=== PATIENT | female | born 1995 | race African-American/Black ===

== ENCOUNTER → 2019-12-17 | Outpatient (CLI) | payer BC ==
[2019-12-17 12:57] LABS: HEMATOCRIT 33.9 % (36.0-47.0); HEMOGLOBIN 11.1 g/dL (12.0-15.5); RED BLOOD COUNT 4.55 x10^6/uL (3.50-5.40); RED CELL DISTRIBUTION WIDTH 15.9 % (11.5-14.5); WHITE BLOOD COUNT 8.4 x10^3/uL (4.0-11.0)
[2019-12-18 17:09] LABS: RUBELLA IGG ANTIBODY 26.8 index (Immune >0.99)
== END | disposition home or self-care (01) ==
LOC: LAB 12:14
PROVIDERS: ATTEND Obstetrics & Gynecology
DX: O26.851 Spotting complicating pregnancy, first trimester (principal); Z3A.00 Weeks of gestation of pregnancy not specified
CPT/HCPCS: 36415; 85027; 86592; 86703; 86762; 86787; 86803; 86850; 86900; 86901; 87340

== ENCOUNTER → 2019-12-24 | Outpatient (CLI) | payer BC ==
--- NOTE | 2019-12-24 15:20 | RAD ---
Clinical indications: Excessive growth COMPARISON: None available. Findings: A single intrauterine fetus is seen in cephalic position. heart rate is 145 beats per minute. BPD is 6.30 cm which equals 25 weeks 4 days. HC is 23.67 cm which equals 25 weeks 5 days. AC is 21.16 cm which equals 25 weeks 5 days. FL is 4.66 cm which equals 25 weeks 4 days. Average gestational age by ultrasound is 25 weeks 5 days +/- 2 weeks with an EDC of April 02, 2020. EDC by LMP is April 08, 2020. Estimated weight is 1 lbs and 13 oz. A four-chamber heart and three-vessel cord are identified. stomach and urinary bladder are identified. kidneys are unremarkable. Cord insertion site is unremarkable. The intracranial structures and spine are morphologically normal in appearance. The ventricular trigone measurement is less than 10 mm. Cisterna magna measurement is 5.3 mm. Four extremities are identified. A normal amount of amniotic volume is seen. Cervical length is 4.2 cm. A grade grade 0 posterior placenta is seen. No placenta previa and no placenta abruptio is identified. The maternal ovaries are not visualized. Impression: Single IUP with gestational age of 25 weeks 5 days. Electronically signed by: Fabrizio Becker MD (12/24/2019 3:17 PM) [facility]
== END | disposition home or self-care (01) ==
LOC: US 06:40 → EDUNIT# 07:00
PROVIDERS: ATTEND Obstetrics & Gynecology
DX: O36.62X0 Maternal care for excessive fetal growth, second trimester, not applicable or unspecified (principal); Z3A.25 25 weeks gestation of pregnancy
CPT/HCPCS: 76805

== ENCOUNTER 2020-03-21 19:17 | Inpatient (IN) | payer BC ==
[~2020-03-21] VITALS: Ht 154.9 cm; Wt 53.5 kg
[2020-03-21] MEDS ORDERED: IV RINGERS,LACTATED 1000ML 1,000 ML IV SCH (19:23)
[2020-03-21 19:41] LABS: CLARITY,URINE CLEAR; COLOR,URINE YELLOW
[2020-03-21 19:42] LABS: BILIRUBIN,URINE NEGATIVE (NEG); NITRITE,URINE NEGATIVE (NEG); PROTEIN,URINE TRACE mg/dL (NEG-TRACE)
[2020-03-21 19:43] LABS: SQUAMOUS EPITHELIAL CELL,UR FEW /LPF
[2020-03-21 19:44] LABS: BACTERIA,URINE FEW /HPF (0-FEW)
[2020-03-21 20:15] VITALS: BP 115/60
[2020-03-21] MEDS ORDERED: ONDANSETRON PF 4 MG/2 ML VIAL. IVP PRN (21:30)
[2020-03-21] MEDS ORDERED: BUTORPHANOL 2 MG/ML VIAL. IVP PRN (21:30)
[2020-03-21] MEDS ORDERED: TERBUTALINE 1 MG/ML VIAL. SQ PRN (21:30)
[2020-03-21] MEDS ORDERED: OXYTOCIN 30 UNIT/500 ML PREMIX 500 ML IV PRN (21:30)
[2020-03-21] MEDS ORDERED: 0.9 % SODIUM CHLORIDE 10 ML DISP.SYRIN. IV PRN (21:30)
[2020-03-21] MEDS ORDERED: LIDOCAINE 1% PF 30 ML VIAL. INJ PRN (21:30)
[2020-03-21] MEDS ORDERED: IBUPROFEN 400 MG TABLET. PO PRN (21:30)
[2020-03-21] MEDS ORDERED: IV RINGERS,LACTATED 1000ML 1,000 ML IV PRN (21:30)
[2020-03-21 21:57] LABS: BASO # 0.1 x10^3/uL (0.0-0.2); BASO % 1 % (0-3); EOS # 0.1 x10^3/uL (0.0-0.7); EOS % 0 % (0-3); HEMATOCRIT 31.7 % (36.0-47.0); HEMOGLOBIN 10.1 g/dL (12.0-15.5); LYMPH # 1.4 x10^3/uL (1.0-4.8); LYMPH % 11 % (24-48); MEAN CORPUSCULAR HEMOGLOBIN 22 pg (25-35); MEAN CORPUSCULAR HGB CONC 32 g/dL (31-37); MEAN CORPUSCULAR VOLUME 67 fL (79-100); MONO % 8 % (0-9); NEUT # 10.2 x10^3/uL (1.8-7.7); NEUT % 80 % (31-73); PLATELET COUNT 230 x10^3/uL (140-400); RED CELL DISTRIBUTION WIDTH 15.8 % (11.5-14.5); WHITE BLOOD COUNT 12.8 x10^3/uL (4.0-11.0)
[2020-03-21 22:35] LABS: PLT ESTIMATE ADEQUATE (ADEQUATE)
[2020-03-21 22:36] LABS: HYPOCHROMIA MOD; MICROCYTOSIS MARKED; POLYCHROMASIA SLIGHT
--- NOTE | 2020-03-22 01:29 | PDOC1 ---
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 The pt was 4cm on presentation but remained unchanged after an hour. Since the pt wa ctxing q 3 min she was admitted. Around midnight the pt was found to be 6cm dilated. Around 1:00 the pt SROM and wa found to be 9 cm and delivered shortly after. PMH: Denies PSH: Denies OBHx: 2 x TSVD (one child passed a week after ) SH: no tob, no EtOH FH: no contributory Social History: Smoke: No ALCOHOL: none Drugs: None Medications: Meds: Current Medications Medications (Trade) Dose Ordered Sig/Theodore Route PRN Reason Start Time Stop Time Status Last Admin Dose Admin Ringer's Solution 1,000 ml @ 125 mls/hr Q8H IV 03/21/20 19:23 03/21/20 21:48 Butorphanol Tartrate (Stadol) 2 mg PRN Q1HR PRN IVP Severe labor pain 03/21/20 21:30 03/22/20 00:31 Allergies: Coded Allergies: No Known Drug Allergies (Unverified , 03/21/20) Physical Exam: Vital Signs: Vital Signs Date Time Temp Pulse Resp B/P (MAP) Pulse Ox O2 Delivery O2 Flow Rate FiO2 03/22/20 00:31 22 Room Air 03/21/20 20:15 99.5 108 115/60 (78) 100 99.5 FHT: 120s +acels/no decels/mLTV Scanlon: 2-3 min SVE: 9/C/+1 PE: GENERAL: No apparent distress. Alert and oriented. HEENT: Head normocephalic, atraumatic. NECK: Supple LUNGS: Clear to auscultation. HEART: RRR, S1, S2 present, pulses intact ABDOMEN: Soft, positive bowel sounds. EXTREMITIES: No cyanosis or edema. NEUROLOGIC: Normal speech, normal tone PSYCHIATRIC: Normal affect, normal mood. SKIN: No ulceration. Labs: Laboratory Tests Test 03/21/20 19:30 03/21/20 21:45 Urine Collection Type Unknown Urine Color Yellow Urine Clarity Clear Urine pH 7.0 (<5.0-8.0) Urine Specific [place] 1.020 (1.000-1.030) Urine Protein Trace mg/dL (NEG-TRACE) Urine Glucose (UA) Negative mg/dL (NEG) Urine Ketones (Stick) 15 mg/dL (NEG) Urine Blood Moderate (NEG) Urine Nitrite Negative (NEG) Urine Bilirubin Negative (NEG) Urine Urobilinogen Dipstick 4.0 mg/dL (0.2 mg/dL) Urine Leukocyte Esterase Small (NEG) Urine RBC 11-20 /HPF (0-2) Urine WBC 11-20 /HPF (0-4) Urine Squamous Epithelial Cells Few /LPF Urine Bacteria Few /HPF (0-FEW) Urine Mucus Marked /LPF White Blood Count 12.8 x10^3/uL (4.0-11.0) H Red Blood Count 4.70 x10^6/uL (3.50-5.40) Hemoglobin 10.1 g/dL (12.0-15.5) L Hematocrit 31.7 % (36.0-47.0) L Mean Corpuscular Volume 67 fL (79-100) L Mean Corpuscular Hemoglobin 22 pg (25-35) L Mean Corpuscular Hemoglobin Concent 32 g/dL (31-37) Red Cell Distribution Width 15.8 % (11.5-14.5) H Platelet Count 230 x10^3/uL (140-400) Neutrophils (%) (Auto) 80 % (31-73) H Lymphocytes (%) (Auto) 11 % (24-48) L Monocytes (%) (Auto) 8 % (0-9) Eosinophils (%) (Auto) 0 % (0-3) Basophils (%) (Auto) 1 % (0-3) Neutrophils # (Auto) 10.2 x10^3/uL (1.8-7.7) H Lymphocytes # (Auto) 1.4 x10^3/uL (1.0-4.8) Monocytes # (Auto) 1.0 x10^3/uL (0.0-1.1) Eosinophils # (Auto) 0.1 x10^3/uL (0.0-0.7) Basophils # (Auto) 0.1 x10^3/uL (0.0-0.2) Platelet Estimate Adequate (ADEQUATE) Polychromasia Slight Hypochromasia Mod Microcytosis Marked Treponema pallidum Antibody Nonreactive (Nonreactive) Laboratory Tests 03/21/20 21:45 Laboratory Tests 03/21/20 21:45 Assessment & Plan: A/P 24y @ 37.5 by 25wk u/s 1.) Active labor 2.) Anemia - Hgb 11.1 3.) TDAP given 01/28/20 4.) Fetus cat I FHT 5.) GBS neg ANAMARIA HINES MD March 22, 2020 01:29
[2020-03-22] MEDS ORDERED: ACETAMINOPHEN 325 MG TABLET. PO PRN (01:30)
[2020-03-22] MEDS ORDERED: diphenhydrAMINE HCL 25 MG CAPSULE PO PRN (01:30)
[2020-03-22] MEDS ORDERED: PHENYLEPH/MINERAL OIL/PETROLAT RECTAL OINTMENT TUBE. RC PRN (01:30)
[2020-03-22] MEDS ORDERED: HYDROCORTISONE 1% TOPICAL OINTMENT 30GM TUBE. TP PRN (01:30)
[2020-03-22] MEDS ORDERED: ZOLPIDEM 5 MG TABLET. PO PRN (01:30)
[2020-03-22] MEDS ORDERED: OXYTOCIN 30 UNIT/500 ML PREMIX 500 ML IV PRN (01:30)
[2020-03-22] MEDS ORDERED: 0.9 % SODIUM CHLORIDE 10 ML DISP.SYRIN. IV PRN (01:30)
[2020-03-22] MEDS ORDERED: TDaP (Adacel) per PROTOCOL. MC PRN (01:30)
[2020-03-22] MEDS ORDERED: BENZOCAINE 20% TOPICAL AEROSOL SPRAY 57GM CAN. TP PRN (01:30)
[2020-03-22] MEDS ORDERED: MAG HYDROX/ALUMINUM HYD/SIMETH 30 ML ORAL.SUSP PO PRN (01:30)
[2020-03-22] MEDS ORDERED: MAGNESIUM HYDROXIDE 2,400 MG/30 ML ORAL.SUSP. PO PRN (01:30)
[2020-03-22] MEDS ORDERED: SIMETHICONE 80 MG TAB.CHEW PO PRN (01:30)
[2020-03-22] MEDS ORDERED: MMR per PROTOCOL. MC PRN (01:30)
--- NOTE | 2020-03-22 01:33 | PDOC ---
VAGINAL DELIVERY DATE DATE: 03/22/20 TIME: 01:32 TIME Called by L&D and informed pt recently SROM and 9 cm at 0102. Patient delivered a viable male infant over intact perineum at 0107. Delivery by nurse. Wt 6lb 15oz. Apgars 8/9. Placenta delivered spontaneously, intact with 3VC. No lacerations noted. 20U of Pitocin infused with IVF. EBL 200cc. WEIGHT Weight [ ] ANAMARIA HINES MD March 22, 2020 01:33
[2020-03-22 04:32] VITALS: BP 100/55
[2020-03-22 06:42] VITALS: BP 105/50
[2020-03-22] MEDS: DOCUSATE SODIUM 100 MG CAPSULE. PO PRN (08:15)
[2020-03-22] MEDS: IBUPROFEN 400 MG TABLET. PO PRN ×2 (08:15→15:33)
[2020-03-22] MEDS ORDERED: DIPH,PERTUSS(ACELL),TET VAC/PF 0.5 ML SYRINGE. VAX IM ONE (11:45)
[2020-03-22 15:57] VITALS: BP 113/61
[2020-03-22] MEDS: oxyCODONE/APAP 5/325 1 TAB TABLET PO PRN (20:26)
[2020-03-22 20:38] VITALS: BP 111/63
[2020-03-23 00:20] VITALS: BP 104/51
[2020-03-23] MEDS: IBUPROFEN 400 MG TABLET. PO PRN (05:11)
[2020-03-23 05:15] VITALS: BP 101/48
[2020-03-23 05:26] LABS: HEMATOCRIT 26.8 % (36.0-47.0); HEMOGLOBIN 8.5 g/dL (12.0-15.5)
--- NOTE | 2020-03-23 08:52 | PDOC ---
BPO SPECIALIST PROGRESS NOTE Subjective: Pt with good pain control. Juan PO. Voiding. Minimal lochia. Objective: Objective: FFNT below umb no C/C/E Vital Signs: Vital Signs Date Time Temp Pulse Resp B/P (MAP) Pulse Ox O2 Delivery O2 Flow Rate FiO2 03/22/20 15:57 98.8 75 18 113/61 (78) 100 Room Air 98.8 Vital Signs Date Time Temp Pulse Resp B/P (MAP) Pulse Ox O2 Delivery O2 Flow Rate FiO2 03/23/20 05:15 98.0 74 18 101/48 (65) 98 Room Air 98.0 Labs: Laboratory Tests Test 03/23/20 05:02 Hemoglobin 8.5 g/dL (12.0-15.5) L Hematocrit 26.8 % (36.0-47.0) L Mean Corpuscular Hemoglobin Concent 32 g/dL (31-37) Laboratory Tests 03/23/20 05:02 Laboratory Tests 03/23/20 05:02 Physical Exam: GENERAL: No apparent distress. Alert and oriented. HEENT: Head normocephalic, atraumatic. NECK: Supple LUNGS: Clear to auscultation. HEART: RRR, S1, S2 present, pulses intact ABDOMEN: Soft, positive bowel sounds. EXTREMITIES: No cyanosis or edema. NEUROLOGIC: Normal speech, normal tone PSYCHIATRIC: Normal affect, normal mood. SKIN: No ulceration. Assessment & Plan: A/P 24y PPD #1 s/p 1.) PP - doing well 2.) Anemia - Hgb 10.1 -> 8.5 3.) TDAP given 01/28/20 4.) D/c home ANAMARIA HINES MD March 23, 2020 08:52
[2020-03-23] MEDS ORDERED: IBUP-1060 PO (08:57)
[2020-03-23] MEDS ORDERED: FERR325T14 PO (08:57)
[2020-03-23] MEDS ORDERED: DOCU-109 PO (08:57)
[2020-03-23] MEDS: DOCUSATE SODIUM 100 MG CAPSULE. PO PRN (10:26)
[2020-03-23] MEDS: oxyCODONE/APAP 5/325 1 TAB TABLET PO PRN (10:27)
--- NOTE | 2020-03-23 15:00 | DS ---
DATE OF DISCHARGE: 03/23/2020 ADMISSION DIAGNOSES: 1. Intrauterine at 38 weeks and 3 days by 23-week ultrasound. 2. Active labor. 3. Anemia. DISCHARGE DIAGNOSES: 1. Intrauterine at 38 weeks and 3 days by 23-week ultrasound. 2. Active labor. 3. Anemia. PROCEDURE: Spontaneous vaginal delivery. BRIEF HOSPITAL COURSE: The patient is a 24-year-old 3, para 2-0-0-1, who presented to Labor and Delivery at 38 weeks and 3 days by 23-week ultrasound with contractions. On presentation, the patient was found to be 4 cm. She remained unchanged after an hour. Since she was damien regularly every 3 minutes, the patient was admitted the night the patient began to change and was found to be 6 cm. Around 1:00, the patient ruptured membranes and was found to be 9. She delivered shortly thereafter. See delivery note for full detail. By day #1, the patient was meeting all discharge criteria and desired discharge to home. Her hemoglobin on admission was found to be 10.1 and after was 8.5, so she was started on iron b.i.d. DISCHARGE INSTRUCTIONS: The patient was told not to lift anything greater than 20 pounds, have pelvic rest for 6 weeks. The patient is to call if she has fevers, chills, nausea, vomiting, abdominal pain or any additional questions or concerns. FOLLOWUP APPOINTMENT: The patient is to follow up on 05/05/2020 at 1:45 p.m. for her appointment. DISCHARGE MEDICATIONS: The patient was given a prescription for: 1. Motrin 800 mg 30 pills. 2. Ferrous sulfate 325 mg 30 pills. 3. Colace 100 mg 30 pills. ANAMARIA HINES MD DR: FELIZ/bob JOB#: [id number] / [id number]
== END 2020-03-23 11:18 | disposition home or self-care (01) | DRG 807 ==
LOC: 3 SO LND 19:17 → OBSVTOIN 19:17 → 3 NORTH 03-22 03:59
PROVIDERS: ADMIT Obstetrics & Gynecology; ATTEND Obstetrics & Gynecology
PROC: 10E0XZZ Delivery of Products of Conception, External Approach (ICD-10-PCS; principal; 2020-03-22)
DX: O99.02 Anemia complicating childbirth (principal); Z37.0 Single live birth; D64.9 Anemia, unspecified; Z3A.38 38 weeks gestation of pregnancy
CPT/HCPCS: 36415; 81001; 85014; 85018; 85025; 86592; 86850; 86900; 86901; 87086; 90471; 90715; J0595; J2590; J7120; G0378